=== PATIENT | female | born 1990 | race Caucasian/White ===

== ENCOUNTER → 2019-06-05 | Outpatient (CLI) | payer OTHER ==
--- NOTE | 2019-06-05 16:07 | RADIOLOGY REPORT (SQ) ---
EXAM DESCRIPTION: MRI CHEST WITHOUT COMPLETED DATE/TIME: 06/05/2019 10:51 am REASON FOR STUDY: RIB SEPARATION COMPARISON: None. TECHNIQUE: MRI of the anterior chest wall was performed, including coronal T1, T2, gradient echo T2 images, sagittal T1 and fat-sat T2 images, axial T1, T2, gradient echo, and fat-sat T2 weighted image s. LIMITATIONS: None. FINDINGS: Patient describes an area of pain in the midline anterior chest wall, with popping sensati on. Area of maximal pain was marked on the patient's skin with a vitamin E marker. There is normal marrow signal in the clavicles, manubrium, sternum, anterior ribs. Normal signal in the anterior rib costochondral cartilages and at the costochondral cartilage-rib junction. No fractu res. No fluid collections. Limited view of the anterior chest wall soft tissues demonstrates multiple tiny less than 5 mm breast parenchymal cysts bilaterally. No pleural effusion. Anterior mediastinal structures are unremarkab le. IMPRESSION: Unremarkable non contrasted MRI of the anterior chest wall. No MR evidence of occult fr acture or abnormal signal in the costochondral cartilages TECHNICAL DOCUMENTATION: JOB ID: [id number]- All Rights Reserved Reading location - IP/workstation name: [email or web address]
== END ==
LOC: RAD 10:03
PROVIDERS: ATTEND Nurse Practitioner Family
DX: S23.29XA Dislocation of other parts of thorax, initial encounter (principal); X58.XXXA Exposure to other specified factors, initial encounter; R07.89 Other chest pain
CPT/HCPCS: 71550